=== PATIENT | male | born 1960 | race Caucasian/White ===

== ENCOUNTER 2019-11-23 18:38 | Observation (INO) | payer OTHER ==
[~2019-11-23] VITALS: Ht 182.9 cm; Wt 79.5 kg
--- NOTE | 2019-11-23 18:49 | NUR ---
MIRIAN Macdonald AT BEDSIDE ASSESSING PATIENT
[2019-11-23] MEDS ORDERED: ATOR10TA87 PO (18:56)
[2019-11-23] MEDS ORDERED: HYDR25TA4 PO (18:56)
[2019-11-23] MEDS ORDERED: NAPR-56 PO (18:56)
[2019-11-23] MEDS ORDERED: LOSA50TA3 PO (18:56)
[2019-11-23 19:00] LABS: BASOPHILS # (AUTO) 0.1 X10'3 (0-0.2); BASOPHILS % (AUTO) 1.1 % (0-1); EOSINOPHILS # (AUTO) 0.2 X10'3 (0-0.9); EOSINOPHILS % (AUTO) 2.5 % (0-6); HEMATOCRIT 48.8 % (42.0-52.0); HEMOGLOBIN 16.3 g/dl (14.0-17.9); LYMPHOCYTES % (AUTO) 22.7 % (21-51); MEAN CORPUSCULAR HEMOGLOBIN 29.6 PG (27.0-31.0); MEAN CORPUSCULAR HGB CONC 33.5 g/dL (33.0-36.5); MEAN CORPUSCULAR VOLUME 88.4 FL (78-98); MEAN PLATELET VOLUME 7.6 FL (7.4-10.4); MONOCYTES # (AUTO) 0.7 X10'3 (0-0.9); MONOCYTES % (AUTO) 8.1 % (2-12); NEUTROPHILS # (AUTO) 5.8 X10'3 (1.8-7.7); NEUTROPHILS % (AUTO) 65.6 % (42-75); PLATELET COUNT 300 X10'3 (140-440); RED BLOOD COUNT 5.52 X10'6 (4.70-6.10); RED CELL DISTRIBUTION WIDTH 13.4 % (11.5-14.5); WHITE BLOOD COUNT 8.8 X10'3 (4.5-11.0)
[2019-11-23 19:17] LABS: ALANINE AMINOTRANSFERASE 51 U/L (12-78); ALBUMIN 4.1 G/DL (3.4-5.0); ALBUMIN/GLOBULIN RATIO 1.2 (1.1-1.5); ALKALINE PHOSPHATASE 97 IU/L (46-116); ANION GAP 8 (8-16); ASPARTATE AMINO TRANSFERASE 32 U/L (10-37); BILIRUBIN,TOTAL 0.7 MG/DL (0.1-1.0); BLOOD UREA NITROGEN 23 MG/DL (7-18); BUN/CREATININE RATIO 21.5 (5.4-32.0); CALCIUM 8.9 MG/DL (8.5-10.1); CHLORIDE 104 MMOL/L (99-107); CREATININE 1.07 MG/DL (0.60-1.10); GLUCOSE 90 MG/DL (70-104); POTASSIUM 4.1 MMOL/L (3.5-5.1); SODIUM 142 MMOL/L (135-145); TOTAL CARBON DIOXIDE 30.3 MMOL/L (24-32); TOTAL PROTEIN 7.5 G/DL (6.4-8.2); eGFR 71 ML/MIN
[2019-11-23 19:20] LABS: TROPONIN I < 0.04 NG/ML (0.0-0.05)
[2019-11-23] MEDS ORDERED: nitroGLYCERIN 0.4mg SUBLingual tab SL PRN ×2 (20:15)
[2019-11-23] MEDS ORDERED: metoprolol tartrate 1mg/ml inj IV PRN (20:15)
[2019-11-23] MEDS ORDERED: magnesium hydroxide 30ml (MOM) UD suspension PO PRN (20:15)
[2019-11-23] MEDS ORDERED: ondansetron/PF 4mg/2ml inj IV PRN (20:15)
[2019-11-23] MEDS ORDERED: aminophylline 250mg/10ml inj. IV PRN (20:15)
[2019-11-23] MEDS ORDERED: magnesium 4gm in 100ml NS 100 ML IV PRN (20:15)
[2019-11-23] MEDS ORDERED: potassium Cl 20 mEq SR tablet PO PRN ×2 (20:15)
[2019-11-23] MEDS ORDERED: magnesium 2GM in 50ml NS 50 ML IV PRN (20:15)
[2019-11-23] MEDS ORDERED: HYDROcodone/acetaminophen 5mg/325mg tablet PO PRN (20:15)
[2019-11-23] MEDS ORDERED: morphine 2 MG/ML inj. syringe IV PRN (20:15)
[2019-11-23] MEDS ORDERED: acetaminophen 325mg tablet PO PRN (20:15)
[2019-11-23] MEDS ORDERED: magnesium Cl slow-release 64mg tablet PO PRN (20:15)
[2019-11-23] MEDS ORDERED: aspirin 81mg tab.chew PO ONE (20:15)
[2019-11-23] MEDS ORDERED: potassium CL 10mEq/100ml bag 100 ML IV PRN ×2 (20:15)
[2019-11-23] MEDS ORDERED: regadenoson 0.4mg/5ml syringe IV ONE ×2 (20:15→20:25)
[2019-11-23] MEDS ORDERED: mag hydrox/Alum hydrox/simeth 30ml oral suspension PO PRN (20:15)
--- NOTE | 2019-11-23 20:38 | NUR ---
LAB CALLED- STATES [facility] VIRUS SCREEN WAS NEGATIVE. KINGA FERRIS MADE AWARE.
--- NOTE | 2019-11-23 20:56 | NUR ---
PT RECEIVED asa BEFORE ARRIVAL.
--- NOTE | 2019-11-23 22:02 | NUR ---
Patient in room . I have received report from Kiana GUEVARA and had the opportunity to ask questions and assume patient care.
--- NOTE | 2019-11-23 22:05 | NUR ---
report to Rosa Maria GUEVARA, microbiological laboratory technician at bedside to draw labs
[2019-11-23 22:40] VITALS: BP 139/85
--- NOTE | 2019-11-23 23:14 | NUR ---
Patient in room U 3019. I have received report from Valeria GUEVARA and had the opportunity to ask questions and assume patient care. Addendum: 11/23/19 at 2314 by Darrian Holland RN wrong pt
[2019-11-24] VITALS (15 sets, daily range): BP systolic 116–144; BP diastolic 75–91
[2019-11-24 01:21] LABS: BASOPHILS # (AUTO) 0.1 X10'3 (0-0.2); BASOPHILS % (AUTO) 0.9 % (0-1); EOSINOPHILS # (AUTO) 0.2 X10'3 (0-0.9); EOSINOPHILS % (AUTO) 1.9 % (0-6); HEMATOCRIT 47.1 % (42.0-52.0); HEMOGLOBIN 16.2 g/dl (14.0-17.9); LYMPHOCYTES # (AUTO) 2.2 X10'3 (1.1-4.8); LYMPHOCYTES % (AUTO) 22.1 % (21-51); MEAN CORPUSCULAR HEMOGLOBIN 30.4 PG (27.0-31.0); MEAN CORPUSCULAR HGB CONC 34.4 g/dL (33.0-36.5); MEAN CORPUSCULAR VOLUME 88.4 FL (78-98); MEAN PLATELET VOLUME 7.8 FL (7.4-10.4); MONOCYTES # (AUTO) 0.8 X10'3 (0-0.9); MONOCYTES % (AUTO) 7.7 % (2-12); NEUTROPHILS # (AUTO) 6.6 X10'3 (1.8-7.7); NEUTROPHILS % (AUTO) 67.4 % (42-75); PLATELET COUNT 274 X10'3 (140-440); RED BLOOD COUNT 5.33 X10'6 (4.70-6.10); RED CELL DISTRIBUTION WIDTH 13.4 % (11.5-14.5); WHITE BLOOD COUNT 9.8 X10'3 (4.5-11.0)
[2019-11-24 01:37] LABS: ALANINE AMINOTRANSFERASE 47 U/L (12-78); ALBUMIN 4.1 G/DL (3.4-5.0); ALBUMIN/GLOBULIN RATIO 1.5 (1.1-1.5); ALKALINE PHOSPHATASE 88 IU/L (46-116); ANION GAP 10 (8-16); ASPARTATE AMINO TRANSFERASE 30 U/L (10-37); BILIRUBIN,TOTAL 0.7 MG/DL (0.1-1.0); BLOOD UREA NITROGEN 22 MG/DL (7-18); BUN/CREATININE RATIO 23.2 (5.4-32.0); CALCIUM 9.2 MG/DL (8.5-10.1); CHLORIDE 104 MMOL/L (99-107); CREATININE 0.95 MG/DL (0.60-1.10); GLUCOSE 110 MG/DL (70-104); POTASSIUM 3.5 MMOL/L (3.5-5.1); SODIUM 140 MMOL/L (135-145); TOTAL CARBON DIOXIDE 26.4 MMOL/L (24-32); TOTAL PROTEIN 6.9 G/DL (6.4-8.2); eGFR 82 ML/MIN
[2019-11-24 01:40] LABS: MAGNESIUM 2.1 MG/DL (1.5-2.4); PHOSPHORUS 3.8 MG/DL (2.3-4.5)
[2019-11-24] MEDS ORDERED: regadenoson 0.4mg/5ml syringe IV ONE (06:00)
--- NOTE | 2019-11-24 06:00 | NUR ---
Patient in room PCU 3019. I have received report from Krystle GUEVARA and had the opportunity to ask questions and assume patient care.
--- NOTE | 2019-11-24 06:22 | NUR ---
Problems reprioritized. Patient report given, questions answered & plan of care reviewed with Vero GUEVARA.
[2019-11-24] MEDS ORDERED: aspirin 81mg tab.chew PO SCH (08:00)
[2019-11-24] MEDS ORDERED: K and/or MAG REPLACEMENT MC SCH (08:00)
[2019-11-24] MEDS ORDERED: atorvastatin 10mg tablet PO SCH (08:00)
[2019-11-24] MEDS ORDERED: losartan 25mg tablet PO SCH (08:00)
[2019-11-24] MEDS: enoxaparin 40mg/0.4ml syringe SQ SCH ×2 (08:00→11:06)
[2019-11-24] MEDS ORDERED: metoprolol tartrate 12.5mg (1/2 tablet) PO SCH (08:00)
[2019-11-24] MEDS ORDERED: HYDROchlorothiazide 25mg tablet PO SCH (08:00)
[2019-11-24] MEDS ORDERED: pneumococcal 23-VAL P-sac vacc 25 mcg/0.5ml vial IMVAC ONE (10:00)
--- NOTE | 2019-11-24 14:08 | NUR ---
Current emergency wt is 79.55 kg. No edema. No past weight. BMI appropriate. Pt with heart healthy diet, pending PO intake. [facility] from [facility] with [facility]. Per physical assessment nutrition risk is adequate with no apparent problem. No apparent malnutrition at this time. Addendum: 11/24/19 at [address] Amended: Links added.
--- NOTE | 2019-11-24 15:31 | NUR ---
Spoke with Dr. Al re: Fátima Scan results. States that d/t some bowel uptake in the images, it is difficult to read, but he will result it as a possible subtle positive. Dr. Stuart will be coming up to see the patient sometime.
--- NOTE | 2019-11-24 18:00 | NUR ---
Problems reprioritized. Patient report given, questions answered & plan of care reviewed with Jenny GUEVARA.
--- NOTE | 2019-11-24 19:23 | NUR ---
PATIENT LEFT ACCOMPANIED BY 2 PERSONS OF THE [facility] VIA WC WITH HANDCUFFS IN PLACE AMA
== END 2019-11-24 19:15 | disposition left against medical advice (07) ==
LOC: ER 18:40 → ED HOLD 22:34 → EEVIPCON 22:34 → PCU 3S 22:45
PROVIDERS: ADMIT Family Medicine; ATTEND Internal Medicine
DX: Z03.818 Encounter for observation for suspected exposure to other biological agents ruled out (principal); R07.89 Other chest pain; I10 Essential (primary) hypertension; E78.5 Hyperlipidemia, unspecified; G35 Multiple sclerosis; E78.00 Pure hypercholesterolemia, unspecified; I21.9 Acute myocardial infarction, unspecified; Z91.010 Allergy to peanuts; Z79.899 Other long term (current) drug therapy
CPT/HCPCS: 36415; 71045; 78452; 80053; 83735; 84100; 84484; 85025; 87081; 87635; 93005; 93017; 93306; 96374; 99285; A9500; G0378; J0280; J2785; 90732; J1650